=== PATIENT | male | born 1995 | race Caucasian/White ===

== ENCOUNTER 2017-10-25 02:42 | Emergency (ER) | payer OTHER ==
[~2017-10-25] VITALS: Ht 172.7 cm; Wt 70.4 kg
[~2017-10-25 02:42] MED LIST: ADVAIR 100-501 EACH IH; ADVAIR 100/501 DISK; ADVIL200 MG PO; ALLERGY PILL; CONCERTA; METHYLPHENIDATE36 MG; MOBIC7.5 MG PO; [UNRECOGNIZED DRUG - REMARK]
[2017-10-25] MEDS ORDERED: MOTRIN800 MG PO (03:23)
[2017-10-25 03:42] VITALS: BP 139/81
== END 2017-10-25 03:42 | disposition home or self-care (01) ==
LOC: EXP 02:42 → EME 02:42 → EXP 03:42
DX: S60.221A Contusion of right hand, initial encounter (principal); S60.511A Abrasion of right hand, initial encounter; W22.09XA Striking against other stationary object, initial encounter
CPT/HCPCS: 73130; 99281; 99283